=== PATIENT | female | born 1955 | race Caucasian/White ===

== ENCOUNTER 2021-07-16 09:13 | Outpatient (REF) | payer BC, SELFPAY ==
[2021-07-16 09:39] LABS: MANUAL DIFF FLAG NO
[2021-07-16 09:48] LABS: Basophils Percent Auto 0.7 % (0-2); Eosinophils Absolute Auto 0.1 X10*3/uL (0.0-0.4); Eosinophils Percent Auto 2.4 % (0-4); Hematocrit 38.8 % (37.0-47.0); Hemoglobin 12.9 g/dl (12.0-16.0); Imm Gran Abs Auto 0.02 X10*3/uL (0.00-0.03); Imm Gran Pct Auto 0.3 % (0.0-0.4); Lymphocytes Percent Auto 35.1 % (20-40); Mean Corpuscular HGB Conc 33.2 g/dl (31.0-35.0); Mean Corpuscular Hemoglobin 29.9 pg (27.0-33.0); Mean Corpuscular Volume 89.8 fL (80.0-98.0); Mean Platelet Volume 9.3 fL (9.4-12.3); Monocytes Absolute Auto 0.5 X10*3/uL (0.1-1.2); Monocytes Percent Auto 9.3 % (2-11); Neutrophils Percent Auto 52.2 % (45-73); Platelet Count 338 X10*3/uL (160-400); Red Blood Count 4.32 X10*6/uL (4.20-5.50); Red Cell Distribution Width 12.8 % (11.0-16.0); White Blood Count 5.7 X10*3/uL (4.8-10.8)
[2021-07-16 10:17] LABS: Alanine Aminotransferase 26 U/L (0-31); Albumin Level 4.8 g/dL (3.5-5.0); Alkaline Phosphatase 98 U/L (39-117); Anion Gap 14 (12-20); Aspartate Amino Transferase 18 U/L (5-31); Bilirubin Total 0.6 mg/dL (0.0-1.0); Blood Urea Nitrogen 12 mg/dL (9-16); Calcium 10.2 mg/dL (8.4-10.2); Carbon Dioxide 27 mmol/L (22-29); Chloride 104 mmol/L (96-108); Estimated Glomerular Filt Rate > 60; Glucose Random 108 mg/dL (60-115); Lipase 20 U/L (8-78); Potassium 4.6 mmol/L (3.3-5.1); Sodium 140 mmol/L (135-145); Total Protein 7.7 g/dL (6.5-8.0)
[2021-07-16 10:34] LABS: Erythrocyte Sedimentation Rate 9 MM/HR (0-20)
[2021-07-16 10:52] LABS: Amylase 29 U/L (28-100)
== END 2021-07-16 09:14 | disposition home or self-care (01) ==
LOC: HO.LAB 09:13
PROVIDERS: PCP Internal Medicine Medical Oncology; Visit Provider Internal Medicine Medical Oncology
DX: R11.2 Nausea with vomiting, unspecified (principal); R19.7 Diarrhea, unspecified; R10.31 Right lower quadrant pain
CPT/HCPCS: 36415; 80053; 82150; 83690; 85025; 85652

== ENCOUNTER 2025-01-02 14:01 | Outpatient (REF) | payer BC, SELFPAY ==
--- OUTSIDE RECORDS SUMMARY | 2025-01-02 05:30 | XMS_ITS ---
Author Organization Anastacio Lal III, MD Address [address] [place] [address] Care Team Providers Care Label Printing Machinist Name Role Phone Anastacio Lal Primary Care Provider [phone] Allergies Allergen (clinical drug ingredient) Drug/Non Drug Allergy documented on EMR Reaction Allergy Type Onset Date Status No Known Drug Allergy Unknown Drug Allergy Active REASON FOR VISIT Annual Exam Medications Medication SIG (Take, Route, Frequency, Duration) Notes Start Date End Date Status Meclizine HCl 25 MG 1 tablet Orally Thre e times a day 11/16/2021 Active valACYclovir HCl 500 MG TAKE 1 TABLET BY MOUTH ONCE A DAY FOR SUPRESSION THERAPY EVERY 24 HOURS 90 Active Lopressor 50 MG 1 tablet with food O rally Twice a day Active Atorvastatin Calcium 40 MG TAKE 1 TABLET BY MOUTH EVERY DAY Active amLODIPine Besylate 10 MG TAKE 1 TABLET BY MOUTH EVERY DAY Active Social History Tobacco Use: Social History Observation Description Date Details (start date - stop date) Former Smoker NA - NA Sex Assigned At : Social History Observation Description Sex Assigned At Female Tobacco Control (Standard) Question Answer Notes Tobacco use: Former smoker How long has it been since you last smoked? Grea ter than 10 years Additional Findings: Tobacco non-user Ex-cigaret te smoker AUDIT-C (Standard) Question Answer Notes Did you have a drink containing alcohol in the p ast year? No Points 0 Interpretation Negative Vital Signs Blood pressure systolic 138 mm Hg 01/03/20 25 Blood pressure diastolic 77 mm Hg 025 Heart Rate 68 /min 01/02/2025 Respiratory Rate 16 /min 01/02/2025 Height 62 in 01/02/2025 Weight 144 lbs 01/02/2025 BMI 26.34 kg/m2 01/02/2025 Encounters Encounter Location Date Provider Diagnosis Anastacio Lal III, MD [address] [place] [address] [place] [address] 01/02/2025 Anastacio Lal Sore throat J02.9 Assessments Encounter Date Diagnosis (ICD Code) Assessment Notes Treatment Notes Treatment Clinical Notes 01/02/2025 Sore throat (ICD-10 - J02.9) Plan Of Treatment Medication Medication Name Sig Start Date Stop Date Notes Meclizine HCl 25 MG 1 tablet Orally Thre e times a day 11/16/2021 valACYclovir HCl 500 MG TAKE 1 TABLET BY MOUTH ONCE A DAY FOR SUPRESSION THERAPY EVERY 24 HOURS 90 Lopressor 50 MG 1 tablet with food O rally Twice a day Atorvastatin Calcium 40 MG TAKE 1 TABLET BY MOUTH EVERY DAY amLODIPine Besylate 10 MG TAKE 1 TABLET BY MOUTH EVERY DAY Pending Test Test Name Order Date Routine Culture 01/02/2025 Next Appt Details Follow Up: 1 Week, Reason: T [facility] Provider Name:Anastacio Lal, 01/10/2025 10:45:00 AM, [address] [place] [address] [address], [place], [address], Provider Name:Anastacio Lal, 01/03/2026 09:30:00 AM, [address] [place] [address] [address], [place], [address], Progress Notes * Caitlin SIMEON MDOB:0 1955 (69 yo F)Acc No.[id number]:01/02/2025 Progress Notes Patient: Bright Caitlin COUGHLIN Provider: Denita Lal MD :1955 A ge:69 Y S ex:Female Date:01/02/2025 Address: [address] [place], [id number] Subjective: * Chief Complaints: * 1 . Annual Exam. * HPI: D epression Screening: S he returns to the office at the age of 69, for her annual physical examination. She is due for a mammogram in the coming February. She declined a breast examination today. She says that she has been feeling ill for one day. She has a mild sore throat but no fever.? Her nose is running and she feels congested. She wanted to know if she should have a Covid vaccination and I said yes. I instructed her to get a cold coronavirus test and [facility] and let me know if it is positive.She has been compliant with her medications. She had comprehensive blood work. A month ago at [facility] in we have requested those results. She has been to an orthopedic surgeon in [place] who has ordered an MRI of her left knee to see if she has a fractured meniscus. She has a lump on the bottom of her left foot, which the orthopedist felt was a fibroma and referred her to podiatry, which has not yet taken place. PHQ-9 L ittle interest or pleasure in doing things?Not at all F eeling down, depressed, or hopeless N ot at all T rouble falling or staying asleep, or sleeping too much N ot at all F eeling tired or having little energy N ot at all P oor appetite or overeating N ot at all F eeling bad about yourself or that you are a failure, or have let yourself or your family down N ot at all T rouble concentrating on things, such as reading the newspaper or watching television N ot at all M oving or speaking so slowly that other people could have noticed; or the opposite, being so fidgety or restless that you have been moving around a lot more than usual N ot at all T houghts that you would be better off or of hurting yourself in some way N ot at all T otal Score 0 C OVID-19 Screening: Questions H ave you had any new onset fever, chills, cough, congestion, sore throat, shortness of breath, muscle aches? Y es Congestion, Sore Throat has experienced it for 2 days S KATY Questions: SDOH Questions I n the past year have you been worried about losing your housing? N o I n the past year have you or any family members you live with been unable to get any of the following when it was really needed? Check all that apply: D ecline to answer F all Risk Screening: Fall History H ave you had any falls with injury in the past year? N o H ave you had two or more falls in the past year? N o F all Risk Assessment: N o falls in the past year * ROS: G eneral/Constitutional: pain L eft knee. C hills d enies. F atigue a dmits. F ever u p to 99 degrees. E NT: Decreased hearing d enies. R espiratory: Cough n on-productive. C ardiovascular: Chest pain with exertion d enies. D yspnea on exertion?denies. S hortness of breath d enies. G astrointestinal: Constipation d enies. D ecreased appetite d enies.?Diarrhea d enies. H eartburn d enies. N ausea d enies. R ectal bleeding?denies. V omiting d enies. H ematology: bruising d enies. p etechiae d enies. S wollen glands n one have been noted. G enitourinary: Frequent urination d enies. M usculoskeletal: Muscle aches d enies. P ainful joints L eft knee.?Sciatica d enies. W eakness d enies. S kin: Itching d enies. R berenice d enies. S kin lesion(s)?denies. N eurologic: Difficulty speaking d enies. D izziness d enies.?Headache d enies. L ow back pain d enies. P sychiatric: Depressed mood d enies. * Medical History: L upus, Anxiety, GERD, Hayfever. * Surgical History: D enies Past Surgical History. * Hospitalization/Major Diagno stic Procedure: D enies Past Hospitalization. * Family History: F ather: 73 yrs, Parkinsons, stroke. M other: 85 yrs, myocardial infarction, cardiac problems, hyperlipidemia, smoker, diagnosed with Hyperlipidemia. P aternal aunt: leukemia,possiable lupos, one other aunt diagnosed with colon cancer. M aternal uncle: cardiac disease. M aternal aunt: cardiac disease. 3 brother(s) , 2 sister(s) . 1 son(s) , 1 daughter(s) - healthy. . There is no family history of breast cancer or ovarian cancer. There is a family history of stroke dementia and hypertension and cardiovascular disease. She is not aware of any family history of mental illness or substance use disorder or addiction. * Social History: T obacco Use: T obacco Control (Standard) T obacco use: F ormer smoker H ow long has it been since you last smoked??Greater than 10 years A dditional Findings: Tobacco non-user E x-cigarette smoker D rugs/Alcohol: D rugs H ave you used drugs other than those for medical reasons in the past 12 months? N o D rug/Alcohol: A GLADYS-C (Standard) D id you have a drink containing alcohol in the past year? N o P oints 0 I nterpretation N egative S he was born in [place], [place]. She has been to [place] for 22 years. * Medications: T aking Lopressor 50 MG Tablet 1 tablet with food Orally Twice a day , Taking Atorvastatin Calcium 40 MG Tablet TAKE 1 TABLET BY MOUTH EVERY DAY , Taking Meclizine HCl 25 MG Tablet Chewable 1 tablet Orally Three times a day , Taking valACYclovir HCl 500 MG Tablet TAKE 1 TABLET BY MOUTH ONCE A DAY FOR SUPRESSION THERAPY EVERY 24 HOURS 90 , Taking amLODIPine Besylate 10 MG Tablet TAKE 1 TABLET BY MOUTH EVERY DAY , Medication List reviewed and reconciled with the patient * Allergies: N o Known Drug Allergy. Objective: * Vitals: H t: 62, Wt:144, BMI:26.34, BP:138/77, HR:68, RR:16, Wt-k.32. * Examination: G eneral Examination: GENERAL APPEARANCE: p leasant, well nourished, well developed, in no acute distress, calm and relaxed, woman. HEAD: a traumatic, normocephalic. EYES: e elaine, perrla, anicteric, conjugate. EARS: n ormal. NOSE: s eptum intact, Congested, clear discharge. ORAL CAVITY: n ormal, unremarkable. NECK/THYROID: n o jugular venous distention, no carotid bruit, thyroid normal. LYMPH NODES: n o enlarged lymph nodes,spleen normal. SKIN: n o suspicious lesions, anicteric. HEART: n o clicks, gallops, murmurs, or rubs, regular rhythm, S1, S2 normal, no s3, or vascular bruits. LUNGS: c lear to auscultation . BREASTS: E xamination offered but declined. ABDOMEN: b owel sounds normal, no ascites, no organomegaly, no mass, overweight. RECTAL EXAM: n ot examined. MUSCULOSKELETAL: S car below right knee, normal range of motion left knee, trace effusion, 1.5 cm lump plantar surface left foot, which is nontender and mobile under the skin. PERIPHERAL PULSES: n ormal. NEUROLOGIC: a lert and oriented, cranial nerves 2-12 grossly intact, deep tendon reflexes 2+ symmetrical, motor strength normal upper and lower extremities, sensory exam intact. PSYCH: a lert, oriented, cognitive function intact, cooperative with exam, good eye contact, judgement and insight good, mood/affect full range, speech clear, thought process logical, goal directed. Assessment: * Assessment: 1. S [facility] throat - J02.9 Plan: * Treatment: 2. O thers Continue Lopressor Tablet, 50 MG, 1 tablet with food, Orally, Twice a day; C ontinue Atorvastatin Calcium Tablet, 40 MG, TAKE 1 TABLET BY MOUTH EVERY DAY; C ontinue Meclizine HCl Tablet Chewable, 25 MG, 1 tablet, Orally, Three times a day; C ontinue valACYclovir HCl Tablet, 500 MG, TAKE 1 TABLET BY MOUTH ONCE A DAY FOR SUPRESSION THERAPY EVERY 24 HOURS 90; C ontinue amLODIPine Besylate Tablet, 10 MG, TAKE 1 TABLET BY MOUTH EVERY DAY. * Follow Up: 1 Week (Reason: Telehealth) * Images: * The named appointment provid er may or may not be the originator of this progress note, and it is not deemed complete until electronically signed by the appointment provider. Sign off status: Pending * Provider: Denita Lal MD Date: 01/02/2025 Generated for Francesca chi/Mojgan/Osmaritting on: 01/02/2025 02:46 PM EDT History and Physical Notes * HPI (History of Present Illness) Category Sub-Category Detail Notes Depression Screening PHQ-9 Little inte rest or pleasure in doing things: Not at all Feeling down, depressed, or hopeless: No t at all Trouble falling or staying asleep, or sl eeping too much: Not at all Feeling tired or having little energy: N ot at all Poor appetite or overeating: Not at all Feeling bad about yourself o r that you are a failure, or have let yourself or your family down: Not at all Trouble concentrating on thi ngs, such as reading the newspaper or watching television: Not at all Moving or speaking so slowly that other people could have noticed; or the opposite, being so fidgety or restless that you have been moving around a lot more than usual: Not at all Thoughts that you would be b tonny off or of hurting yourself in some way: Not at all Total Score: 0 Fall Risk Screening Fall History Have you had any falls with injury in the past year?: No Have you had two or more falls in the year?: No Fall Risk Assessment:: No falls in the year COVID-19 Screening Questions Have you had any new onset fever, chills, cough, congestion, sore throat, shortness of breath, muscle aches?: Yes Congestion, Sore Throat has experienced it for 2 days SDOH Questions SDOH Questions In the past year have you been worried about losing your housing?: No In the past year have you or any family members you live with been unable to get any of the following when it was really needed? Check all that apply:: Decline to answer Examination Category Sub-Category Detail Notes General Examination GENERAL APPEARANCE: pleasant , well nourished, well developed, in no acute distress, calm and relaxed, woman HEAD: atraumatic, normocep halic EYES: eomi, perrla, anicte surendra, conjugate EARS: normal NOSE: septum intact, Conge sted, clear discharge NECK/THYROID: no jugular venous di stention, no carotid bruit, thyroid normal HEART: no clicks, gallops, murmurs, or rubs, regular rhythm, S1, S2 normal, no s3, or vascular bruits LUNGS: clear to auscultatio n ABDOMEN: bowel sounds normal, no ascites, no organomegaly, no mass, overweight NEUROLOGIC: alert and oriented, cranial nerves 2-12 grossly intact, deep tendon reflexes 2+ symmetrical, motor strength normal upper and lower extremities, sensory exam intact SKIN: no suspicious lesion s, anicteric PERIPHERAL PULSES: normal BREASTS: Examination offered but declined MUSCULOSKELETAL: Scar below right kne e, normal range of motion left knee, trace effusion, 1.5 cm lump plantar surface left foot, which is nontender and mobile under the skin LYMPH NODES: no enlarged lymph no lyndsay,spleen normal RECTAL EXAM: not examined PSYCH: alert, oriented, cog nitive function intact, cooperative with exam, good eye contact, judgement and insight good, mood/affect full range, speech clear, thought process logical, goal directed ORAL CAVITY: normal, unremarkable
--- OUTSIDE RECORDS SUMMARY | 2025-01-02 14:46 | XMS_ITS | Patient Health Record ---
Author Organization [facility] Address [address] [place] [address] Care Team Providers Care Reimbursement Auditor Name Role Phone Lukasz WHITE, Anastacio Primary Care Provider Unavailab eldridge Ayla Mcgill Unavailable [phone] Reason For Referral No Information Medications Medication SIG (Take, Route, Frequency, Duration) Notes Start Date End Date Status Feldene 20 MG 1 capsule with food Orally Once a day; Duration: 30 day(s) 09/14/2011 Active Problems Problem Type SNOMED Code ICD Code Onset Dates Problem Status W/U Status Risk Notes Problem Verruca plantaris (85399713) Verruca Plantaris (078.19) Active confirmed Problem Bursitis (91174106) Bursitis (727.3) Active confirmed Problem Hallux valgus (547158552) Hallux Valgus (735.0) Active confirmed Problem Hammer toe (015115083) Hammer toe (735.4) Active confirmed Problem Achilles bursitis (671580581) Achilles Tendonitis Bursitis (726.71) Active confirmed Problem Myositis (04534151) Myositis (729.1) Active confirmed Problem Pain in limb (15744148) Pain in Limb (729.5) Active confirmed Problem Plantar fasciitis (026160523) Plantar Fasciitis (728.71) Active confirmed Plan Of Treatment Pending Test Test Name Order Date X ray : Foot, right 3V 09/14/2011 [id number] Destruction, 1-14 09/14/2011 Insurance Providers Payer Name Payer Address Payer Phone Subscriber Number Group Number Insured Name Patient Relationship to Insured Coverage Start Date Coverage End Date [facility] [address] [place] [address] [id number] Jaret Jernigan Spouse - patient is the spouse of the insured Medical (General) History Medical History History ICD Code back, hip, knee pain lupus warts measles mumps chicken pox Surgical History Surgery Date(Month/Year) section 1995
--- OUTSIDE RECORDS SUMMARY | 2025-01-02 14:46 | XMS_ITS | Clinical Summary ---
Author Organization [facility] Address [address] [place] [address] Phone Care Team Providers Care Pipe Cleaning Machine Operator Name Role Phone Physician, No Pcp Primary Care Provider Unavaila ble Allergies Active Allergy Reactions Criticality Noted Date Comments Metoprolol Fatigue 10/20/2024 Medications amLODIPine (NORVASC) 5 mg tablet amlodipine 5 mg tablet 9 Active carvediloL (COREG) 3.125 mg tablet Take by mouth 2 (two) times a day with meals. Active valACYclovir (VALTREX) 500 mg tablet TAKE 1 TABLET BY MOUTH ONCE A DAY FOR SUPRESSION THERAPY EVERY 24 HOURS 5 Active tretinoin (RETIN-A) 0.025 % cream PLEASE SEE ATTACHED FOR DETAILED DIRECTIONS 4 Active rosuvastatin (CRESTOR) 5 mg tablet Take 1 tablet (5 mg total) by mouth daily. 4 05/18/20 25 Active losartan (COZAAR) 50 mg tablet Take 1 tablet (50 mg total) by mouth daily. 4 Active LORazepam (ATIVAN) 1 mg tablet Take 1 tablet (1 mg total) by mouth 2 (two) times a day. 5 Active gabapentin (NEURONTIN) 300 mg capsule Take 1 capsule (300 mg total) by mouth 2 (two) times a day for 10 days. 20 capsule 5 Active metoprolol tartrate (LOPRESSOR) 50 mg tablet Take 1 tablet (50 mg total) by mouth 2 (two) times a day. Active fluticasone propionate (FLONASE) 50 mcg/actuation nasal spray Administer 1 spray into each nostril 2 (two) times a day. Shake gently. Before first use, prime pump. After use, clean tip and replace cap. 16 g Active Active Problems Problem Noted Date Diagnosed Date Cerebrovascular accident (CV A) due to vascular stenosis ([facility] V24, [facility] V28) 11/27/2018 Encounters Date Type Department Care Team Description 10/20/2024 1:40 PM EDT Office Visit [facility] [address] [id number] Aster Chapman MD Middle ear effusion, right (Primary Dx); Vertigo; Otalgia of right ear from Last 3 Months Surgical History Surgery Date Site/Laterality Comments OOPHORECTOMY SINUS SURGERY Medical History Medical History Date Comments Hypertension Lupus [facility] (NI[facility]) Stroke Scale dysarthria score 1, mild to moderate dysarthria, patient slurs at least some words and, at worst, can be understood with some difficulty PCOS (polycystic ovarian syndrome) Social History Tobacco Use Types Packs/Day Years Used Date Smoking Tobacco: Former Cigarettes Smokeless Tobacco: Never Tobacco Cessation:Counseling Given: Not Answered Alcohol Use Standard Drinks/Week Comments Yes 0 (1 standard drink = 0.6 oz pur e alcohol) Comments No Sex and Gender Information Value Date Recorded Sex Assigned at Not on file Legal Sex Female 6:23 AM EST Gender Identity Not on file Sexual Orientation Not on file Obstetrics History Last Filed Vital Signs Vital Sign Reading Time Taken Comments Blood Pressure 134/78 10/20/2024 1:31 PM EDT Pulse 75 10/20/2024 1:31 PM EDT Temperature 36.7 C (98.1 F) 10/20/2024 1:31 PM EDT Respiratory Rate 16 10/20/2024 1:31 PM EDT Oxygen Saturation 95% 10/20/2024 1:31 PM EDT Inhaled Oxygen Concentration - - Weight 63 kg (139 lb) 10/20/2024 1:31 PM EDT Height 157.5 cm (5' 2 ) 10/20/2024 1:31 PM EDT Body Mass Index 25.42 10/20/2024 1:31 PM EDT Plan of Treatment Health Maintenance Due Date Last Done Comments Breast Cancer Screening 1955 DTaP,Tdap,and Td Vaccines (1 - Tdap) 1975 Pneumococcal Vaccine: 50+ Years (1 of 1 - PCV) 2006 Zoster Vaccines (1 of 2) 2006 Colorectal Cancer Screening: Colonoscopy 07/21/2022 Falls Risk Assessment 07/21/2022 Hepatitis C Screening 07/21/2022 Osteoporosis Screening (Bone Density Screening) 07/21/2022 Social Influencers of Health Screening 07/21/2022 COVID-19 Vaccine (1 - 2023-2 5 season) 2024 Depression Screening 06/13/2024 Influenza Vaccine (#1) 2025 Hypertension/CHF/CAD Annual BMP Blood Test 05/15/2025 05/15/2024, 11/27/2018, 11/26/2018 Cholesterol Screening (Lipid Panel) 05/15/2029 05/15/2024, 11/21/2019 RSV Immunization Adult Patients (1 - 1-dose 75+ series) 2031 HIB Vaccines Aged Out No longer eligi ble based on patient's age to complete this topic HPV Vaccines Aged Out No longer eligi ble based on patient's age to complete this topic Hepatitis A Vaccines Aged Out No long er eligible based on patient's age to complete this topic Hepatitis B Vaccines Aged Out No long er eligible based on patient's age to complete this topic IPV Vaccines Aged Out No longer eligi ble based on patient's age to complete this topic MMR Vaccines Aged Out No longer eligi ble based on patient's age to complete this topic Meningococcal ACWY Vaccine Aged Out N o longer eligible based on patient's age to complete this topic Meningococcal B Vaccine Aged Out No l onger eligible based on patient's age to complete this topic RSV Immunization Patients Under 20 months Aged Out No longer eligible b ased on patient's age to complete this topic Varicella Vaccines Aged Out No longer eligible based on patient's age to complete this topic Insurance [facility] Care Teams Pipe Cleaning Machine Operator Relationship Specialty Start Date End Date Physician, No Pcp PCP - General 07/21/22
--- OUTSIDE RECORDS SUMMARY | 2025-01-02 14:46 | XMS_ITS | Encounter Summary ---
Author Organization [facility] Address [address] [place] [address] Phone Care Team Providers Care Reinsurance Claims Analyst Name Role Phone Anastacio Lal MD Primary Care Provider [phone] Encounter Details Date Type Department Care Team (Late st Contact Info) Description 06/11/2024 Procedure Pass [facility] PERIOP DEPT [address] [place] [address] Social History Tobacco Use Types Packs/Day Years Used Date Smoking Tobacco: Never Smokeless Tobacco: Never Alcohol Use Standard Drinks/Week Comments Yes 7 (1 standard drink = 0.6 oz pur e alcohol) Education Answer Date Recorded Are you interested in more education? Not on jane e 10/10/2022 Are you concerned about learning? Not on file 10/10/2022 No 10/10/2022 No 10/10/2022 Digital Access Answer Date Recorded No 11/07/2022 No 11/07/2022 Reliable internet access at home? Not on file 11/07/2022 Device with a working camera? Not on file Intimate Partner Violence Answer Date R ecorded Are you denied basic needs s uch as food, clothing, or medical care? No 06/11/2024 In the past 12 months have y ou been in a relationship with a person who hurts, threatens, or tries to control you? No 06/11/2024 Are you denied basic needs s uch as food, clothing, or medical care? No 06/11/2024 In the past 12 months have y ou been in a relationship with a person who hurts, threatens, or tries to control you? No 06/11/2024 Comments No Sex and Gender Information Value Date Recorded Sex Assigned at Not on file Legal Sex Female 4:53 PM EST Gender Identity Not on file Sexual Orientation Not on file documented as of this encounter Plan of Treatment Not on file documented as of this encounter Visit Diagnoses Not on filedocumented in this encounter Care Teams Reinsurance Claims Analyst Relationship Specialty Start Date End Date Anastacio Lal MD [address] [place] [id number] PCP - General Medical Oncology 01/24/19 documented as of this encounter Additional Source Comments The information contained in this document represents components of the legal health record. It is not the complete legal health record.[facility]
== END 2025-01-02 14:02 | disposition home or self-care (01) ==
LOC: HO.LNP 14:01
PROVIDERS: Visit Provider Internal Medicine Medical Oncology
DX: J02.9 Acute pharyngitis, unspecified (principal)
CPT/HCPCS: 87070